=== PATIENT | female | born 1990 | race Two or more races ===

== ENCOUNTER 2021-01-05 11:05 | Emergency (ER) | payer MEDICAID ==
[~2021-01-05] VITALS: Ht 157.5 cm; Wt 86.2 kg
[2021-01-05] MEDS ORDERED: ASPirin 81 mg TAB PO ONE (11:15)
[2021-01-05 12:21] LABS: Basophils # (auto) 0.1 10 ^3/uL (0-0.2); Basophils % (auto) 0.6 % (0.0-2.0); Eosinophils # (auto) 0.3 10 ^3/uL (0-0.8); Mean Corpuscular Hemoglobin 25.7 pg (28.0-32.0); Monocytes # (auto) 0.6 10 ^3/uL (0-1.3); Monocytes % (auto) 6.4 % (0.0-12.0)
[2021-01-05 12:23] LABS: Eosinophils % (auto) 3.2 % (0.0-7.0); Hematocrit 37.1 % (36.0-46.0); Hemoglobin 12.3 g/dL (12.2-16.2); Lymphocytes # (auto) 2.4 10 ^3/uL (0.4-5.4); Lymphocytes % (auto) 23.8 % (10.0-50.0); Mean Corpuscular Hgb Conc. 33.1 g/dL (32.0-36.0); Mean Corpuscular Volume 77.6 fL (80.0-100.0); Neutrophils # (auto) 6.6 10 ^3/uL (1.6-8.6); Platelet Count (auto) 333 10^3/uL (140-450); Red Blood Cells 4.78 10^6/uL (4.0-5.20); Red Cell Distribution Width 17.2 % (11.8-14.3); White Blood Cell 9.9 10^3/uL (4.4-10.8)
[2021-01-05 12:28] VITALS: BP 130/78
[2021-01-05 12:38] LABS: Albumin 3.4 g/dL (3.4-5.0); Calcium 8.5 mg/dL (8.5-10.1); Potassium 4.3 mmol/L (3.5-5.1)
[2021-01-05 12:44] LABS: BUN/Creatinine Ratio 31.3; Bilirubin, Total 0.2 mg/dL (0.2-1.0); Total Protein 7.7 g/dL (6.4-8.2)
[2021-01-05 12:48] LABS: Urine Bacteria FEW /hpf (None Seen); Urine Blood Negative /uL (Negative); Urine Mucus FEW (None Seen); Urine Specific Gravity 1.027 (1.001-1.035); Urine WBC 1 /hpf (0 - 5)
[2021-01-05 13:09] LABS: Alcohol, Urine < 3.0 mg/dL (0-10); Amphetamine Screen, Urine NEGATIVE (NEGATIVE); Barbiturate Scree,Urine NEGATIVE (NEGATIVE); Benzodiazephine Screen, Urine NEGATIVE (NEGATIVE); Cannabinoid Screen, Urine NEGATIVE (NEGATIVE); Cocaine Screen, Urine NEGATIVE (NEGATIVE); Opiate Scree,Urine NEGATIVE (NEGATIVE); Phencyclidine Screen, Urine NEGATIVE (NEGATIVE)
== END 2021-01-05 13:06 | disposition home or self-care (01) ==
LOC: ER 11:05
DX: R07.2 Precordial pain (principal); Z90.49 Acquired absence of other specified parts of digestive tract
CPT/HCPCS: 36415; 71046; 80053; 80307; 81001; 85025; 85379; 93005

== ENCOUNTER 2021-04-06 17:25 | Emergency (ER) | payer MEDICAID ==
[~2021-04-06] VITALS: Ht 160 cm; Wt 81.6 kg
[2021-04-06] MEDS ORDERED: SODIUM CHLORIDE 0.9% 500 ML IV ONE (18:15)
[2021-04-06 18:30] VITALS: BP 145/93
[2021-04-06 18:34] LABS: Basophils # (auto) 0.2 10 ^3/uL (0-0.2); Mean Corpuscular Hgb Conc. 32.7 g/dL (32.0-36.0)
[2021-04-06 18:36] LABS: Basophils % (auto) 1.5 % (0.0-2.0); Eosinophils # (auto) 0.4 10 ^3/uL (0-0.8); Eosinophils % (auto) 2.8 % (0.0-7.0); Hematocrit 38.5 % (36.0-46.0); Hemoglobin 12.6 g/dL (12.2-16.2); Lymphocytes # (auto) 2.9 10 ^3/uL (0.4-5.4); Lymphocytes % (auto) 21.6 % (10.0-50.0); Mean Corpuscular Hemoglobin 25.3 pg (28.0-32.0); Mean Corpuscular Volume 77.3 fL (80.0-100.0); Monocytes % (auto) 7.2 % (0.0-12.0); Neutrophils # (auto) 8.9 10 ^3/uL (1.6-8.6); Neutrophils % (auto) 66.9 % (37.0-80.0); Red Blood Cells 4.98 10^6/uL (4.0-5.20); Red Cell Distribution Width 16.6 % (11.8-14.3); White Blood Cell 13.3 10^3/uL (4.4-10.8)
[2021-04-06 18:58] LABS: Albumin 3.6 g/dL (3.4-5.0); Calcium 9.1 mg/dL (8.5-10.1); Potassium 3.6 mmol/L (3.5-5.1)
[2021-04-06 19:01] LABS: BUN/Creatinine Ratio 22.7; Bilirubin, Total 0.3 mg/dL (0.2-1.0); Total Protein 8.4 g/dL (6.4-8.2)
== END 2021-04-07 00:38 | disposition left against medical advice (07) ==
LOC: ER 17:25
DX: R06.02 Shortness of breath (principal); R00.0 Tachycardia, unspecified; E11.9 Type 2 diabetes mellitus without complications; Z90.49 Acquired absence of other specified parts of digestive tract; Z98.890 Other specified postprocedural states; Z98.51 Tubal ligation status; Z20.822 Contact with and (suspected) exposure to COVID-19
CPT/HCPCS: 36415; 80053; 85025; 93005

== ENCOUNTER 2021-05-24 02:24 | Emergency (ER) | payer MEDICAID ==
[~2021-05-24] VITALS: Ht 157.5 cm; Wt 85.3 kg
[2021-05-24 02:24] VITALS: BP 144/96
[2021-05-24 03:25] LABS: Basophils # (auto) 0.1 10 ^3/uL (0-0.2); Basophils % (auto) 0.7 % (0.0-2.0); Hemoglobin 12.4 g/dL (12.2-16.2); Monocytes # (auto) 0.7 10 ^3/uL (0-1.3)
[2021-05-24 03:27] LABS: Eosinophils # (auto) 0.2 10 ^3/uL (0-0.8); Hematocrit 38.4 % (36.0-46.0); Lymphocytes # (auto) 2.8 10 ^3/uL (0.4-5.4); Lymphocytes % (auto) 25.3 % (10.0-50.0); Mean Corpuscular Hemoglobin 25.1 pg (28.0-32.0); Mean Corpuscular Hgb Conc. 32.4 g/dL (32.0-36.0); Mean Corpuscular Volume 77.5 fL (80.0-100.0); Monocytes % (auto) 6.6 % (0.0-12.0); Neutrophils # (auto) 7.1 10 ^3/uL (1.6-8.6); Neutrophils % (auto) 65.4 % (37.0-80.0); Red Blood Cells 4.96 10^6/uL (4.0-5.20); Red Cell Distribution Width 15.4 % (11.8-14.3); White Blood Cell 10.9 10^3/uL (4.4-10.8)
[2021-05-24 03:43] LABS: Partial Thromboplastin Time 27.8 sec (23.6-33.0)
[2021-05-24 03:48] LABS: Potassium 3.6 mmol/L (3.5-5.1)
[2021-05-24 03:53] LABS: Albumin 3.5 g/dL (3.4-5.0); BUN/Creatinine Ratio 14.9; Bilirubin, Total 0.2 mg/dL (0.2-1.0); Calcium 9.3 mg/dL (8.5-10.1); Magnesium 2.2 mg/dL (1.6-2.6); Total Protein 7.9 g/dL (6.4-8.2)
[2021-05-24] MEDS ORDERED: LORazepam 0.5 MG TAB PO ONE (04:30)
== END 2021-05-24 05:28 | disposition left against medical advice (07) ==
LOC: ER 02:24
DX: R07.89 Other chest pain (principal); M54.2 Cervicalgia; M25.512 Pain in left shoulder; F41.9 Anxiety disorder, unspecified; Z53.21 Procedure and treatment not carried out due to patient leaving prior to being seen by health care provider
CPT/HCPCS: 36415; 71045; 80053; 83735; 84443; 85025; 85610; 85730; 93005

== ENCOUNTER 2021-08-12 22:01 | Emergency (ER) | payer MEDICAID ==
[~2021-08-12] VITALS: Ht 160 cm; Wt 86.2 kg
[2021-08-12 22:04] VITALS: BP 152/98
== END 2021-08-13 03:55 | disposition left against medical advice (07) ==
LOC: ER 22:04
DX: F41.9 Anxiety disorder, unspecified (principal); Z53.21 Procedure and treatment not carried out due to patient leaving prior to being seen by health care provider

== ENCOUNTER 2023-03-10 07:01 | Emergency (ER) | payer MEDICAID ==
[~2023-03-10] VITALS: Ht 157.5 cm; Wt 84.3 kg
[2023-03-10 07:36] LABS: Basophils # (auto) 0.1 10 ^3/uL (0-0.2); Basophils % (auto) 1.3 % (0.0-2.0); Eosinophils # (auto) 0.3 10 ^3/uL (0-0.8); Eosinophils % (auto) 2.7 % (0.0-7.0); Hematocrit 40.8 % (36.0-46.0); Hemoglobin 13.7 g/dL (12.2-16.2); Lymphocytes # (auto) 2.9 10 ^3/uL (0.4-5.4); Lymphocytes % (auto) 26.6 % (10.0-50.0); Mean Corpuscular Hemoglobin 27.2 pg (28.0-32.0); Mean Corpuscular Hgb Conc. 33.4 g/dL (32.0-36.0); Mean Corpuscular Volume 81.3 fL (80.0-100.0); Monocytes # (auto) 0.6 10 ^3/uL (0-1.3); Monocytes % (auto) 5.4 % (0.0-12.0); Nucleated Red Blood Cells % 0.1 %; Red Blood Cells 5.02 10^6/uL (4.0-5.20); Red Cell Distribution Width 15.7 % (11.8-14.3)
[2023-03-10 07:49] LABS: Albumin 3.5 g/dL (3.4-5.0); Calcium 8.7 mg/dL (8.5-10.1)
[2023-03-10 07:52] LABS: Urine Bacteria FEW /hpf (None Seen); Urine Blood 2+ /uL (Negative); Urine Specific Gravity 1.016 (1.001-1.035); Urine WBC 3 /hpf (0 - 5)
[2023-03-10 07:53] LABS: BUN/Creatinine Ratio 18.8 (10.0-20.0); Bilirubin, Total 0.3 mg/dL (0.2-1.0); Total Protein 7.7 g/dL (6.4-8.2)
[2023-03-10 07:55] LABS: Potassium 2.8 mmol/L (3.5-5.1)
[2023-03-10] MEDS ORDERED: POTASSIUM CHL 20 Meq TABLET PO ONE (08:00)
[2023-03-10] MEDS ORDERED: IOHEXOL 350 MG/ML 100ML IJ ONE (08:01)
[2023-03-10 08:11] LABS: Alcohol, Urine < 3.0 mg/dL (0-10); Amphetamine Screen, Urine NEGATIVE (NEGATIVE); Barbiturate Scree,Urine NEGATIVE (NEGATIVE); Benzodiazephine Screen, Urine NEGATIVE (NEGATIVE); Cannabinoid Screen, Urine NEGATIVE (NEGATIVE); Cocaine Screen, Urine NEGATIVE (NEGATIVE); Opiate Scree,Urine NEGATIVE (NEGATIVE); Phencyclidine Screen, Urine NEGATIVE (NEGATIVE)
[2023-03-10] MEDS ORDERED: NITR-87 PO (09:19)
[2023-03-10 09:42] VITALS: BP 114/75; PULSE 76; RESP 17; TEMP 97.9; O2SAT 98
== END 2023-03-10 09:47 | disposition home or self-care (01) ==
LOC: ER 07:01
DX: E87.6 Hypokalemia (principal); R20.0 Anesthesia of skin; N39.0 Urinary tract infection, site not specified; I10 Essential (primary) hypertension; Z90.49 Acquired absence of other specified parts of digestive tract; Z98.890 Other specified postprocedural states
CPT/HCPCS: 36415; 70450; 70496; 80053; 80307; 81001; 85025; 99285; Q9967

== ENCOUNTER 2023-06-08 09:30 | Emergency (ER) | payer MEDICAID ==
[~2023-06-08] VITALS: Ht 157.5 cm; Wt 88.2 kg
[~2023-06-08 09:30] MED LIST: NITR-87 PO
[2023-06-08 09:58] LABS: Basophils # (auto) 0.1 10 ^3/uL (0-0.2); Basophils % (auto) 0.8 % (0.0-2.0); Eosinophils # (auto) 0.2 10 ^3/uL (0-0.8); Eosinophils % (auto) 2.1 % (0.0-7.0); Hematocrit 40.6 % (36.0-46.0); Hemoglobin 13.6 g/dL (12.2-16.2); Lymphocytes # (auto) 2.8 10 ^3/uL (0.4-5.4); Lymphocytes % (auto) 28.7 % (10.0-50.0); Mean Corpuscular Hemoglobin 27.9 pg (28.0-32.0); Mean Corpuscular Hgb Conc. 33.4 g/dL (32.0-36.0); Mean Corpuscular Volume 83.5 fL (80.0-100.0); Monocytes # (auto) 0.6 10 ^3/uL (0-1.3); Monocytes % (auto) 6.4 % (0.0-12.0); Nucleated Red Blood Cells % 0.1 %; Red Blood Cells 4.86 10^6/uL (4.0-5.20); Red Cell Distribution Width 15.2 % (11.8-14.3); White Blood Cell 9.6 10^3/uL (4.4-10.8)
[2023-06-08 10:06] LABS: Urine Bacteria FEW /hpf (None Seen); Urine Blood 1+ /uL (Negative); Urine Clarity Clear (Clear); Urine Color Yellow (Yellow); Urine Mucus FEW (None Seen); Urine Protein, UAD Negative (Negative); Urine Specific Gravity 1.017 (1.001-1.035); Urine Urobilinogen Normal (Negative); Urine WBC 2 /hpf (0 - 5); Urine pH 5.5 (5.0-8.0)
[2023-06-08 10:32] LABS: Alanine Aminotransferase 19 U/L (7-40); Albumin 4.4 g/dL (3.2-4.8); Alkaline Phosphatase 53 U/L (46-116); Anion Gap 8 (5-15); Aspartate Aminotransferase 19 U/L (13-40); Bilirubin, Total 0.5 mg/dL (0.2-1.0); Blood Urea Nitrogen 11 mg/dL (9-23); Calcium 9.2 mg/dL (8.5-10.1); Carbon Dioxide 26 mmol/L (20-30); Chloride 106 mmol/L (98-107); Glucose 95 mg/dL (74-106); Potassium 3.6 mmol/L (3.5-5.1); Sodium 140 mmol/L (136-145); Total Protein 6.8 g/dL (5.7-8.2)
[2023-06-08] MEDS ORDERED: NAPR-1334 PO (11:12)
[2023-06-08 13:08] VITALS: BP 133/76; PULSE 80; RESP 17; TEMP 97.9; O2SAT 95
== END 2023-06-08 13:10 | disposition home or self-care (01) ==
LOC: ER 09:30
DX: R07.89 Other chest pain (principal); R10.2 Pelvic and perineal pain; I10 Essential (primary) hypertension; Z90.49 Acquired absence of other specified parts of digestive tract; Z98.890 Other specified postprocedural states; Z79.899 Other long term (current) drug therapy
CPT/HCPCS: 36415; 71045; 80053; 81001; 84484; 84702; 85025; 85379; 93005

== ENCOUNTER 2023-10-13 14:07 | Emergency (ER) | payer MEDICAID ==
[~2023-10-13] VITALS: Ht 157.5 cm; Wt 88.6 kg
[~2023-10-13 14:07] MED LIST changes: +NAPR-1334 PO
[2023-10-13 14:56] LABS: Basophils # (auto) 0.1 10 ^3/uL (0-0.2); Eosinophils # (auto) 0.2 10 ^3/uL (0-0.8); Hematocrit 44.4 % (36.0-46.0); Hemoglobin 14.4 g/dL (12.2-16.2); Lymphocytes # (auto) 2.6 10 ^3/uL (0.4-5.4); Lymphocytes % (auto) 24.8 % (10.0-50.0); Mean Corpuscular Hemoglobin 27.4 pg (28.0-32.0); Mean Corpuscular Hgb Conc. 32.4 g/dL (32.0-36.0); Mean Corpuscular Volume 84.5 fL (80.0-100.0); Monocytes # (auto) 0.5 10 ^3/uL (0-1.3); Monocytes % (auto) 4.7 % (0.0-12.0); Neutrophils # (auto) 7.1 10 ^3/uL (1.6-8.6); Neutrophils % (auto) 67.5 % (37.0-80.0); Nucleated Red Blood Cells % 0.1 %; Red Blood Cells 5.25 10^6/uL (4.0-5.20); Red Cell Distribution Width 15.7 % (11.8-14.3); White Blood Cell 10.6 10^3/uL (4.4-10.8)
[2023-10-13] MEDS: GABAPENTIN 300 MG CAP PO ONE (15:11)
[2023-10-13 15:15] VITALS: BP 135/78; PULSE 77; RESP 17; TEMP 98.7; O2SAT 98
[2023-10-13 15:17] LABS: Alanine Aminotransferase 14 U/L (7-40); Albumin 4.8 g/dL (3.2-4.8); Alkaline Phosphatase 54 U/L (46-116); Anion Gap 5 (5-15); Aspartate Aminotransferase 17 U/L (13-40); BUN/Creatinine Ratio 16.4 (10.0-20.0); Bilirubin, Total 0.4 mg/dL (0.2-1.0); Blood Urea Nitrogen 10 mg/dL (9-23); Calcium 9.7 mg/dL (8.5-10.1); Carbon Dioxide 27 mmol/L (20-30); Chloride 107 mmol/L (98-107); Glucose 79 mg/dL (74-106); Potassium 4.1 mmol/L (3.5-5.1); Sodium 139 mmol/L (136-145); Total Protein 7.8 g/dL (5.7-8.2)
[2023-10-13 15:22] LABS: Urine Bacteria NONE SEEN /hpf (None Seen); Urine Blood 3+ /uL (Negative); Urine Clarity HAZY (Clear); Urine Color Colorless (Yellow); Urine Mucus FEW (None Seen); Urine Protein, UAD TRACE (Negative); Urine Specific Gravity 1.018 (1.001-1.035); Urine Urobilinogen Normal (Negative); Urine WBC 17 /hpf (0 - 5); Urine pH 7.5 (5.0-8.0)
[2023-10-13] MEDS ORDERED: NITR-87 PO (15:41)
[2023-10-13] MEDS ORDERED: GABA-1250 PO (15:41)
== END 2023-10-13 16:15 | disposition home or self-care (01) ==
LOC: ER 14:07
DX: M54.12 Radiculopathy, cervical region (principal); I10 Essential (primary) hypertension; Z90.49 Acquired absence of other specified parts of digestive tract; Z79.899 Other long term (current) drug therapy
CPT/HCPCS: 36415; 72040; 80053; 81001; 85025

== ENCOUNTER 2023-11-08 06:21 | Emergency (ER) | payer MEDICAID ==
[~2023-11-08] VITALS: Ht 160 cm; Wt 85.0 kg
[~2023-11-08 06:21] MED LIST changes: +GABA-1250 PO; -NAPR-1334 PO; +NAPR-1335 PO
[2023-11-08 06:41] VITALS: BP 151/92; PULSE 83; RESP 16; O2SAT 98
== END 2023-11-08 09:35 | disposition left against medical advice (07) ==
LOC: ER 06:21
DX: M79.601 Pain in right arm (principal); Z53.21 Procedure and treatment not carried out due to patient leaving prior to being seen by health care provider

== ENCOUNTER 2024-04-24 20:42 | Emergency (ER) | payer MEDICAID ==
[~2024-04-24] VITALS: Ht 157.5 cm; Wt 87.8 kg
[2024-04-24] MEDS ORDERED: ACET500T58 PO (21:45)
[2024-04-24] MEDS ORDERED: PRED20TA2 PO (21:45)
[2024-04-24] MEDS ORDERED: AMOX875T4 PO (21:45)
[2024-04-24 21:48] LABS: COVID19 ANTIGEN SOFIA FIA NEGATIVE (NEGATIVE); Rapid Influenza A Negative (Negative); Rapid Influenza B Negative (Negative)
[2024-04-24 21:57] VITALS: BP 136/90; TEMP 98.7
[2024-04-24 21:58] VITALS: PULSE 83; RESP 18; O2SAT 98
[2024-04-24 21:58] LABS: Urine Bacteria None Seen /hpf (None Seen)
[2024-04-24 22:09] LABS: Urine Blood 3+ /uL (Negative); Urine Clarity Clear (Clear); Urine Color Light-Yellow (Yellow); Urine Protein, UAD Negative (Negative); Urine Urobilinogen Normal (Negative); Urine WBC 2 /hpf (0 - 5)
== END 2024-04-24 22:02 | disposition home or self-care (01) ==
LOC: ER 20:42
DX: J06.9 Acute upper respiratory infection, unspecified (principal); I10 Essential (primary) hypertension; Z90.49 Acquired absence of other specified parts of digestive tract; Z98.890 Other specified postprocedural states; Z98.891 History of uterine scar from previous surgery; Z20.822 Contact with and (suspected) exposure to COVID-19
CPT/HCPCS: 36415; 81001; 87426; 87804

== ENCOUNTER 2025-05-14 11:15 | Emergency (ER) | payer MEDICAID ==
[~2025-05-14] VITALS: Ht 157.5 cm; Wt 92.0 kg
[~2025-05-14 11:15] MED LIST changes: +ACET500T58 PO; +AMOX875T4 PO; +PRED20TA2 PO
[2025-05-14 12:05] VITALS: BP 138/90; PULSE 92; RESP 18; TEMP 98.5; O2SAT 98
--- NOTE | 2025-05-14 12:13 | ED.PDOC ---
Back pain HPI HPI Comments 35F PRESENTS TO THE ER W/ THE C/C OF BODY PAIN. PT REPORTS ON WAKING UP THIS MORNING AT 0500 feeling weak. Started wegovy 6 weeks ago and reports shes only eating fruits for the past 2 weeks. Concerns about her sugar and blood pressure. DENIES CHILLS, FEVER, N/V/D, SOB, CP. Denies any other symptoms at this time. Chief Complaint: Body Pain Time Seen by MD: 12:10 Primary Care Provider: GERMAN Newton Notes: Nurses Notes, Medications, Allergies Allergies: Coded Allergies: NO KNOWN ALLERGIES (Unverified , 01/05/21) Home Meds Active Scripts Prednisone (Prednisone) 20 Mg Tab, 20 MG PO BID for 5 Days, #10 TAB 0 Refills Prov:SARAH BE 04/24/24 Acetaminophen (Acetaminophen) 500 Mg Tab, 500 MG PO Q4HPRN, #30 TAB 0 Refills Prov:SARAH BE 04/24/24 Amoxicillin & Pot Clavulanate (Amoxicillin/Potassium Cla) 875 Mg Tab, 1 TAB PO BID for 7 Days, #14 TAB 0 Refills Prov:SARAH BE 04/24/24 Gabapentin (Gabapentin) 300 Mg Cap, 1 CAP PO Q6HP PRN, #20 CAP 0 Refills Prov:DON WILLIAMSON PAC 10/13/23 Nitrofurantoin Monohydrate Mac (Macrobid) 100 Mg Cap, 100 MG PO BID for 7 Days, #14 CAP Prov:DON WILLIAMSON PAC 10/13/23 Naproxen Sodium (Naproxen) 220 Mg Tab, 220 MG PO BID for 7 Days, #14 TAB Prov:JOSE DAVIS MD 06/08/23 Nitrofurantoin Monohydrate Mac (Macrobid) 100 Mg Cap, 100 MG PO BID for 5 Days, #10 CAP Prov:KORINA LINO MD 03/10/23 Information Source: Patient Mode of Arrival: Ambulatory Timing: Hours Duration: Since onset, Hours Severity: Moderate Prehospital treatment: None Onset: Spontaneous Associated signs and symptoms: None Past Medical History PAST MEDICAL HISTORY: HTN Surgical History: Cholecystectomy, , Tubal Ligation OUTPATIENT CASE MANAGER History: No Pertinent OUTPATIENT CASE MANAGER History Family History Family History: Reviewed,noncontributory to illness, Unknown Social History Smoker: Non-Smoker Alcohol: Denies ETOH Use Drugs: Denies Drug Use Lives In: Home Constitutional: reports: others (BODY NUMBNESS/HEAVINESS); denies: chills, diaphoresis, fatigue, fever, malaise, sweats, weakness EENTM: denies: blurred vision, double vision, ear bleeding, ear discharge, ear drainage, ear pain, ear ringing, eye pain, eye redness, hearing loss, mouth pain, mouth swelling, nasal discharge, nose bleeding, nose congestion, nose pain, photophobia, tearing, throat pain, throat swelling, voice changes, others Respiratory: denies: cough, hemoptysis, orthopnea, SOB at rest, shortness of breath, SOB with excertion, stridor, wheezing, others Cardiovascular: denies: chest pain, dizzy spells, diaphoresis, Dyspnea on exertion, edema, irregular heart beat, left arm pain, lightheadedness, palpitations, PND, syncope, others Gastrointestinal: denies: abdomen distended, abdominal pain, blood streaked bowels, constipated, diarrhea, dysphagia, difficulty swallowing, hematemesis, melena, nausea, poor appetite, poor fluid intake, rectal bleeding, rectal pain, vomiting, others Genitourinary: denies: abnormal vagina bleeding, burning, dyspareunia, dysuria, flank pain, frequency, hematuria, incontinence, pain, , vagina discharge, urgency, others Neurological: denies: dizziness, fainting, headache, left sided numbness, left sided weakness, numbness, paresthesia, pre-existing deficit, right sided numbness, right sided weakness, seizure, speech problems, tingling, tremors, weakness, others Musculoskeletal: denies: back pain, gout, joint pain, joint swelling, muscle pain, muscle stiffness, neck pain, others Integumetry: denies: bruises, change in color, change in hair/nails, dryness, laceration, lesions, lumps, rash, wounds, others Allergic/Immunocompromised: denies: Difficulty Healing, Frequent Infections, Hives, Itching, others Hematologic/Lymphatic: denies: anemia, blood clots, easy bleeding, easy bruising, swollen glands, others Endocrine: denies: excessive hunger, excessive sweating, excessive thirst, excessive urination, flushing, intolerance to cold, intolerance to heat, unexplained weight gain, unexplained weight loss, others Psychiatric: denies: anxiety, bipolar disorder, depression, hopeless, panic disorder, schizophrenia, sleepless, suicidal, others All Other Systems: Reviewed and Negative Physical Exam General Appearance: No Apparent Distress, Normal HEENT: Normal ENT Inspection, Pharynx Normal, TMs Normal Neck: Full Range of Motion, Non-Tender, Normal, Normal Inspection Respiratory: Chest Non-Tender, Lungs Clear, No Accessory Muscle Use, No Respiratory Distress, Normal Breath Sounds Cardiovascular: No Edema, No JVD, No Murmur, No Gallop, Normal Peripheral Pulses, Regular Rate/Rhythm Breast Exam: Deferred Gastrointestinal: No Organomegaly, Non Tender, No Pulsatile Mass, Normal Bowel Sounds, Soft Genitalia: Deferred Pelvic: Deferred Rectal: Deferred Extremities: No calf tenderness, Normal capillary refill, Normal inspection, Normal range of motion, Non-tender, No pedal edema Musculoskeletal : Apperance: Normal Neurologic: Alert, restrooms or lounges maid II-XII nml as Tested, No Motor Deficits, Normal Affect, Normal Mood, No Sensory Deficits Cerebellar Function: Normal Reflexes: Normal Skin: Dry, Normal Color, Warm Lymphatic: No Adenopathy Was a procedure done? Was a procedure done?: No Back Pain Differential Dx Differential Diagnosis: Other X-Ray, Labs, Meds, VS Vital Signs Date Time Temp Pulse Resp B/P (MAP) Pulse Ox O2 Delivery O2 Flow Rate FiO2 05/14/25 12:05 92 18 98 Room Air 05/14/25 12:05 98.5 92 18 138/90 (106) 98 98.5 05/14/25 11:17 98.1 94 16 150/89 97 98.1 Lab Test 05/14/25 13:04 05/14/25 13:00 Range/Units White Blood Count 11.3 H 4.4-10.8 10^3/uL Red Blood Count 5.21 H 4.0-5.20 10^6/uL Hemoglobin 15.4 12.2-16.2 g/dL Hematocrit 45.3 36.0-46.0 % Mean Corpuscular Volume 86.9 80.0-100.0 fL Mean Corpuscular Hemoglobin 29.6 28.0-32.0 pg Mean Corpuscular Hemoglobin Concent 34.1 32.0-36.0 g/dL Red Cell Distribution Width 13.5 11.8-14.3 % Platelet Count 365 140-450 10^3/uL Mean Platelet Volume 7.6 6.9-10.8 fL Neutrophils (%) (Auto) 76.4 37.0-80.0 % Lymphocytes (%) (Auto) 16.4 10.0-50.0 % Monocytes (%) (Auto) 5.2 0.0-12.0 % Eosinophils (%) (Auto) 1.2 0.0-7.0 % Basophils (%) (Auto) 0.8 0.0-2.0 % Neutrophils # (Auto) 8.6 1.6-8.6 10 ^3/uL Lymphocytes # (Auto) 1.8 0.4-5.4 10 ^3/uL Monocytes # (Auto) 0.6 0-1.3 10 ^3/uL Eosinophils # (Auto) 0.1 0-0.8 10 ^3/uL Basophils # (Auto) 0.1 0-0.2 10 ^3/uL Nucleated Red Blood Cells 0.0 % Sodium Level 140 136-145 mmol/L Potassium Level 4.0 3.5-5.1 mmol/L Chloride Level 104 98-107 mmol/L Carbon Dioxide Level 28 20-31 mmol/L Anion Gap 8 5-15 Blood Urea Nitrogen 13 9-23 mg/dL Creatinine 0.63 0.550-1.02 mg/dL Glomerular Filtration Rate Calc 117 >90 mL/min BUN/Creatinine Ratio 20.6 H 10.0-20.0 Serum Glucose 111 H 74-106 mg/dL Calcium Level 9.9 8.7-10.4 mg/dL POC Glucose 108 H 70-106 mg/dl X-Ray, Labs, Meds, VS Comment 35F PRESENTS TO THE ER W/ THE C/C OF BODY PAIN and generalized weakness. Glucose: VSS No other complaint Patient is stable for discharge at this time. External notes reviewed. Test results and diagnostic imaging interpreted. All diagnostic findings, discharge care, education and instructions provided Follow-up with PCP in 2 to 3 days Patient verbalized understanding and agreed to treatment plan Vital signs stable, afebrile, no acute distress noted Patient ambulatory with strong steady gait Advised to return precautions for any new or worsening symptoms, return to ER immediately for re-evaluation Patient is aware that the purpose of this visit was for an acute medical emergency requiring emergent stabilization. Chronic conditions, including malignancies have not been ruled out. Patient is instructed to follow up with PCP as directed and discharge instructions for continued care and workup. If unable to arrange follow-up, patient is to return to the emergency department for reassessment. Patient (parent or legal guardian if applicable) was given verbal and written discharge instructions and acknowledges understanding. Time of 1ST Reevaluation: 12:40 Reevaluation 1ST: Improved Patient Education/Counseling: Diagnosis, Treatment, Prognosis Family Education/Counseling: No Family Present SEPSIS Sepsis Screen Date sepsis recognized/suspect: May 14, 2025 Time Sepsis recognized/suspect: 1116 Recent Procedure: No On Antibiotic Therapy: No Respiratory Rate >20: No Heart Rate >90: No Temp<36 C (96.8 F) or >38.3 C: No SBP <90 or MAP <65 mmHG: No New Acute Mental Status Change: No Is the patient on CPAP, BIPAP,: No Vital Signs Date Time Temp Pulse Resp B/P (MAP) Pulse Ox O2 Delivery O2 Flow Rate FiO2 05/14/25 12:05 92 18 98 Room Air 05/14/25 12:05 98.5 92 18 138/90 (106) 98 98.5 05/14/25 11:17 98.1 94 16 150/89 97 98.1 Laboratory Tests Test 05/14/25 13:04 White Blood Count 11.3 10^3/uL (4.4-10.8) H Departure 1 Departure Time of Disposition: 13:39 Impression: Primary Impression: Generalized weakness Disposition: 01 HOME / SELF CARE / HOMELESS Condition: Stable Discharged With: Self Critical Care Note Critical Care Time?: No Stability Stability form required: No Heart Score Heart Score: Heart Score Response (Comments) Value History N/A 0 EKG N/A 0 Age N/A 0 Risk Factors N/A 0 Troponin N/A 0 Total 0 I personally scribed for JODIE RAMIREZ NP ([email or web address]) on 05/14/25 at 12:12. Electronically submitted by Omer Serna ([email or web address]). JODIE RAMIREZ NP May 14, 2025 12:12
[2025-05-14 13:21] LABS: Hematocrit 45.3 % (36.0-46.0); Hemoglobin 15.4 g/dL (12.2-16.2); Mean Corpuscular Hemoglobin 29.6 pg (28.0-32.0); Mean Corpuscular Volume 86.9 fL (80.0-100.0); Nucleated Red Blood Cells % 0.0 %
[2025-05-14 13:28] LABS: Anion Gap 8 (5-15); Carbon Dioxide 28 mmol/L (20-31); Chloride 104 mmol/L (98-107); Potassium 4.0 mmol/L (3.5-5.1); Sodium 140 mmol/L (136-145)
[2025-05-14 13:29] LABS: Calcium 9.9 mg/dL (8.7-10.4)
[2025-05-14 13:35] LABS: BUN/Creatinine Ratio 20.6 (10.0-20.0); Blood Urea Nitrogen 13 mg/dL (9-23); Glucose 111 mg/dL (74-106)
[2025-05-14] MEDS ORDERED: ONDA-155 PO (13:41)
== END 2025-05-14 13:42 | disposition home or self-care (01) ==
LOC: ER 11:15
DX: R53.1 Weakness (principal); M79.18 Myalgia, other site; I10 Essential (primary) hypertension; Z90.49 Acquired absence of other specified parts of digestive tract; Z98.51 Tubal ligation status; Z98.890 Other specified postprocedural states
CPT/HCPCS: 36415; 80048; 82947; 82962; 85025